=== PATIENT | female | born 2000 | race Two or more races ===

== ENCOUNTER 2020-02-19 13:38 | Outpatient (CLI) | payer BC, SELFPAY ==
--- NOTE | 2020-02-19 | ECG_ITS ---
Measurements Intervals [place] Rate: 78 P: 31 FL: 139 QRS: 18 QRSD: 72 T: 9 QT: 391 QTc: 446 Interpretive Statements SINUS RHYTHM NORMAL ECG Electronically Signed On 02-19-2020 14:57:48 PARACHUTIST/COMBATANT DIVER QUALIFIED by Suleiman Nielson D.O.
--- NOTE | ~2020-02-19 | XR_ITS ---
XR chest 2V DATE: 02/19/2020 14:18 INDICATION: Dyspnea. Dizziness. Fatigue. TECHNIQUE: PA and lateral views COMPARISON: None FINDINGS: Normal heart size. No hilar or mediastinal enlargement. No pulmonary infiltrate or consolid ation, pleural effusion or pulmonary vascular congestion or pneumothorax. Mild dextroscoliosis of the thoracic spine. IMPRESSION: No active cardiopulmonary disease Reviewed, dictated and finalized at location B. E MAKER
[2020-02-19 14:08] LABS: Mean Corpuscular HGB Conc 24.5 g/dl (32-36); Mean Corpuscular Hemoglobin 14.7 pg (26-34); Mean Corpuscular Volume 59.9 fl (80-100); Mean Platelet Volume 10.2 fl (7.4-10.4); Platelet Count Result 384 k/mm3 (150-375); Red Blood Count 3.07 M/mm3 (4.2-5.4); Red Cell Distribution Width 21.8 % (11.5-14.5); White Blood Count 3.9 K/mm3 (4.5-10.0)
[2020-02-19 14:21] LABS: Alanine Aminotransferase 17 U/L (4-35); Albumin Level 4.6 g/dL (3.5-5.1); Alkaline Phosphatase 45 U/L (38-126); Anion Gap 7 mmol/L (8-16); Aspartate Amino Transferase 30 U/L (14-36); Bilirubin,Total 0.7 mg/dL (0.2-1.3); Blood Urea Nitrogen 11 mg/dL (7-17); Calcium 9.1 mg/dL (8.4-10.2); Carbon Dioxide 27 mmol/L (22-30); Chloride 105 mmol/L (98-107); D Dimer 0.31 ug/mL (<0.48); Estimated Glomerular Filt Rate > 60; Glucose 107 mg/dL (65-105); Potassium 3.9 mmol/L (3.4-5.0); Sodium 139 mmol/L (137-145)
[2020-02-19 14:26] LABS: Hematocrit 18.4 % (37.0-47.0); Hemoglobin 4.5 g/dL (12.0-15.0)
[2020-02-19 14:29] LABS: NT Pro B Type Natriuretic Pept 47 PG/ML (5-100)
[2020-02-19 14:51] LABS: Thyroid Stimulating Hormone 0.853 uIU/mL (0.465-4.680)
[2020-02-19 15:05] LABS: Add Urine Microscopic? NO; Appearance Urine Clear (Clear); Bilirubin Urine Negative (Negative); Blood Urine Negative (Negative); Color Urine Yellow (Yellow); Glucose Urine UA Negative (Negative); Ketones Urine Negative (Negative); Leukocyte Esterase Ur Negative LEU/UL (NEGATIVE); Nitrate Urine Negative (Negative); Protein Urine Negative (Negative); Specific Grav Ur 1.017 (1.001-1.035); Urobilinogen Urine Negative mg/dL (<2.0)
[2020-02-19 15:29] LABS: Free T4 Free Thyroxine 1.05 ng/mL (0.78-2.19)
[2020-02-24 13:43] LABS: Triiodothyronine T3 Free 3.1 pg/mL (2.3-4.2)
== END 2020-02-19 13:39 | disposition home or self-care (01) ==
LOC: ANHLAB 13:42
PROVIDERS: PCP Internal Medicine; Visit Provider Internal Medicine
DX: R06.09 Other forms of dyspnea (principal); R53.83 Other fatigue; R42 Dizziness and giddiness
CPT/HCPCS: 36415; 71046; 80053; 81003; 83880; 84439; 84443; 84481; 85027; 85380; 93005

== ENCOUNTER 2020-03-03 10:37 | Outpatient (CLI) | payer BC, SELFPAY ==
[2020-03-03] MEDS: IRON SUCROSE COMPLEX 500 MG in SODIUM CHLORIDE 0.9% IV 250 ML 68.75 MG IVPB (11:06)
[2020-03-03 13:59] VITALS: BP 107/63; PULSE 80; RESP 14; TEMP 36.6; O2SAT 98
[2020-03-03 14:45] VITALS: BP 97/60; PULSE 72; RESP 14; O2SAT 99
--- NOTE | 2020-03-03 15:03 | PC.NURSE ---
Tolerated Venofer IV infusion well. Discuss medication with patient. Safe exit of hospital.
== END 2020-03-03 10:38 | disposition home or self-care (01) ==
PROVIDERS: PCP Internal Medicine; Visit Provider Internal Medicine
DX: D50.9 Iron deficiency anemia, unspecified (principal)
CPT/HCPCS: 96365; 96366; J1756; J7050

== ENCOUNTER 2020-04-08 12:47 | Outpatient (CLI) | payer MEDICAID, SELFPAY ==
--- NOTE | ~2020-04-08 | US_ITS ---
EXAMINATION: US pelvic complete w TV EXAM DATE: 04/08/2020 13:23 INDICATION: N92.0 - Excessive and frequent menstruation with regular cycle. TECHNIQUE: Pelvic transabdominal and transvaginal sonogram was performed. There are multiple graysca le and Doppler images available for interpretation. Comparison is made to prior examination from 2015. FINDINGS: Uterus measures 8.1 x 4.1 x 4.9 cm, is retroverted and morphologically normal. Endometria l stripe measures 11 mm, within normal limits. There is no free pelvic fluid. Right adnexa: The ovary measures 4.5 x 2.1 x 3.1 cm and is morphologically normal. Ovarian vascular f low confirmed. Left adnexa: The ovary measures 5.8 x 3.0 x 3.1 cm and is morphologically normal. Ovarian vascular fl ow confirmed. IMPRESSION: 1. Unremarkable pelvic ultrasound exam. Reviewed, dictated and finalized at location B. S CUTTING MACHINE FEEDER
== END 2020-04-08 12:48 | disposition home or self-care (01) ==
LOC: ANHIMG 12:52
PROVIDERS: PCP Internal Medicine; Visit Provider Student in an Organized Health Care Education/Training Program
DX: N92.0 Excessive and frequent menstruation with regular cycle (principal)
CPT/HCPCS: 76830; 76856

== ENCOUNTER 2020-04-26 13:03 | Outpatient (CLI) | payer BC, SELFPAY ==
[2020-04-26 13:44] LABS: Hematocrit 41.2 % (37.0-47.0); Immature Platelet Fraction Pct 4.2 % (0.9-11.2); Immature Reticulocyte Fraction 2.8 % (3.0-15.9); Mean Corpuscular HGB Conc 31.6 g/dl (32-36); Mean Corpuscular Volume 91.8 fl (80-100); Mean Platelet Volume 10.4 fl (7.4-10.4); Platelet Count Result 230 k/mm3 (150-375); Red Blood Count 4.49 M/mm3 (4.2-5.4); Red Cell Distribution Width 19.5 % (11.5-14.5); Reticulocyte Hemoglobin Conten 36.6 pg (28.2-35.7); Reticulocyte Percent 0.97 % (0.7-4.3); Reticulocytes Absolute 0.04 B/L (32.2-175.7); White Blood Count 4.4 K/mm3 (4.5-10.0)
[2020-04-26 13:53] LABS: INR 0.9
[2020-04-26 13:54] LABS: Partial Thromboplastin Time 25.3 SECONDS (22.3-36.8)
[2020-04-26 14:26] LABS: Iron 50 ug/dL (37-170)
[2020-04-26 14:39] LABS: Percent Iron Saturation 13 % (20-50)
[2020-04-28 21:00] LABS: Factor VIII Activity 161 % normal (50-180)
[2020-04-29 05:54] LABS: Prolactin 9.6 ng/mL (***)
[2020-04-29 13:33] LABS: von Willebrand Factor Ag 150 % (50-217)
== END 2020-04-26 13:04 | disposition home or self-care (01) ==
LOC: ANHLAB 13:04
PROVIDERS: PCP Internal Medicine; Visit Provider Student in an Organized Health Care Education/Training Program
DX: D64.9 Anemia, unspecified (principal)
CPT/HCPCS: 36415; 82728; 83520; 83540; 83550; 84146; 85027; 85046; 85055; 85240; 85246; 85610; 85730

== ENCOUNTER 2020-05-02 11:01 | Outpatient (CLI) | payer BC, SELFPAY ==
[2020-05-02 11:31] LABS: SARS-CoV-2 Ag Negative (Negative)
[2020-05-02 12:15] LABS: SARS-CoV-2 RNA PCR Negative
== END 2020-05-02 11:02 | disposition home or self-care (01) ==
LOC: CHSLAB 11:02
PROVIDERS: PCP Internal Medicine; Visit Provider Internal Medicine
DX: J06.9 Acute upper respiratory infection, unspecified (principal); Z20.822 Contact with and (suspected) exposure to COVID-19
CPT/HCPCS: 87426; C9803; U0003; U0005

== ENCOUNTER 2021-06-27 03:35 | Emergency (ER) | payer OTHER, SELFPAY ==
--- NOTE | ~2021-06-27 | CT_ITS ---
EXAMINATION: CT abdomen pelvis w con INDICATION: Left lower abdominal pain TECHNIQUE: Computed tomographic images of the abdomen and pelvis were obtained after the administrati on of 100 cc of Omnipaque 350 intravenous contrast. The dose-length product (DLP) was 874.48 mGy-cm. Automated exposure control and iterative reconstruction technique were employed. COMPARISON: None available FINDINGS: The lung bases are clear. The heart size is normal. The liver, spleen, pancreas, gallbladde r, and adrenal glands are normal. The kidneys are unremarkable. No pathologically enlarged abdominal or pelvic lymph nodes are identified. There is no free intraperitoneal gas or evidence of bowel obstr uction. The appendix is normal. There appears to be an intramural fibroid of the posterior uterine bernadine dy. There is a large volume of stool in the proximal colon. IMPRESSION: 1. Large volume of stool in the proximal colon. Reviewed, dictated and finalized at location A.
[2021-06-27 03:36] VITALS: BP 150/97; PULSE 86; RESP 18; TEMP 36.1; O2SAT 100
[2021-06-27 04:13] LABS: Appearance Urine Clear (Clear); Bilirubin Urine Negative (Negative); Blood Urine Negative (Negative); Color Urine Yellow (Yellow); Glucose Urine UA Negative (Negative); Ketones Urine Negative (Negative); Leukocyte Esterase Ur Negative LEU/UL (Negative); Nitrate Urine Negative (Negative); Protein Urine Negative (Negative); Specific Grav Ur 1.025 (1.001-1.035); Urobilinogen Urine 0.2 mg/dL (<2.0); pH Urine 6.5 (5.0-9.0)
[2021-06-27 04:16] LABS: Add Urine Microscopic? NO
--- NOTE | 2021-06-27 04:16 | PC.NURSE ---
This RN attempted IV access, unsuccessful. 2nd RN to try
[2021-06-27 04:36] LABS: Basophils Percent Auto 0.5 % (0.2-1.2); Eosinophils Absolute Auto 0.2 K/mm3 (0-0.3); Eosinophils Percent Auto 2.5 % (0-4.4); Hematocrit 41.2 % (37.0-47.0); Hemoglobin 12.9 g/dL (12.0-15.0); Immature Granulocyte Absolute 0.01 K/mm3 (0.00-0.031); Immature Granulocyte Percent A 0.1 % (0-0.5); Lymphocytes Absolute Auto 1.38 K/mm3 (0.9-3.2); Lymphocytes Percent Auto 18.8 % (18.3-44.2); Mean Corpuscular HGB Conc 31.3 g/dl (32-36); Mean Corpuscular Hemoglobin 28.4 pg (26-34); Mean Corpuscular Volume 90.7 fl (80-100); Mean Platelet Volume 10.4 fl (7.4-10.4); Monocytes Absolute Auto 0.7 K/mm3 (0.1-0.6); Monocytes Percent Auto 9.9 % (2.6-8.5); Neutrophils Percent Auto 68.2 % (45.5-73.1); Platelet Count Result 248 k/mm3 (150-375); Red Blood Count 4.54 M/mm3 (4.2-5.4); Red Cell Distribution Width 14.1 % (11.5-14.5); White Blood Count 7.3 K/mm3 (4.5-10.0)
[2021-06-27 04:49] LABS: Alanine Aminotransferase 45 U/L (6-35); Alkaline Phosphatase 58 U/L (38-126); Anion Gap 3 mmol/L (8-16); Aspartate Amino Transferase 40 U/L (14-36); Bilirubin,Total 0.4 mg/dL (0.2-1.3); Blood Urea Nitrogen 12 mg/dL (7-17); Carbon Dioxide 27 mmol/L (22-30); Chloride 107 mmol/L (98-107); Estimated CRCL calculation 106 ml/min; Estimated Glomerular Filt Rate > 60; Glucose 92 mg/dL (65-110); Lipase 31 U/L (23-300); Potassium 4.6 mmol/L (3.4-5.0); Sodium 137 mmol/L (137-145)
--- NOTE | 2021-06-27 05:07 | ED.ABDPAIN ---
HPI - Abdominal Pain General Chief Complaint: Abdominal Pain Stated Complaint: Left abd cramping with back and leg radiation Time Seen by Provider: 06/27/21 04:18 Source: patient and RN notes reviewed Mode of arrival: ambulatory Limitations: no limitations History of Present Illness HPI narrative: This is a 21 year old female who presents for evaluation left lower abdominal pain. She states this pain started 2 days ago. She describes pain has pressure to left lower abdomen that radiates to her left lower back and buttock. She reports having this pain in the passed but it has never been this bad. She has been unable to sleep due to her pain. She took tylenol and ibuprofen at 7 pm last night without improvement. This pain usually seems to be affiliated with her menstrual cycle. She denies nausea, vomiting, fever, chills or urinary complaints. she also denies abnormal vaginal discharge. She rates her pain as 8/10. Related Data Home Medications Medication Instructions Recorded Confirmed famotidine 40 mg PO DAILY 03/03/20 12/14/20 acetaminophen 500 mg tablet 500 mg PO Q6H PRN 03/23/20 12/14/20 escitalopram oxalate 10 mg tablet 10 mg PO DAILY 12/14/20 12/14/20 escitalopram oxalate 5 mg tablet 5 mg PO DAILY 12/14/20 12/14/20 Allergies Allergy/AdvReac Type Severity Reaction Status Date / Time amoxicillin Allergy Rash Verified 06/27/21 04:23 Review of Systems Review of Systems: All systems reviewed & are unremarkable except as noted in HPI and below Constitutional: Constitutional: Denies chills and Denies fever(s) Gastrointestinal: Gastrointestinal: Reports abdominal pain, Denies diarrhea, Denies nausea and Denies vomiting Genitourinary: Genitourinary: Denies hematuria, Denies dysuria, Reports pelvic pain and Reports flank pain PMFSH Past Medical History Medical History Anemia Anxiety and depression History of irregular menstrual bleeding Surgical History Surgical History H/O wrist surgery 2010 [place] teeth removed 2011 Family History Family History Father Hypertension Social History Social History (Reviewed 09/14/20 @ 12:59 by LISHA Gonzales Smoking status: Never smoker Alcohol intake: current Substance use: never Exam Const: General: no acute distress and alert Orientation/consciousness: patient oriented x3 Eyes: EOM: EOMs intact bilaterally Chest: Chest palpation & inspection: normal inspection of the chest Resp: Effort & Inspection: normal respiratory effort and no retractions Auscultation: clear to auscultation bilaterally Cardio: Rate: regular rate Rhythm: regular rhythm Heart sounds: no murmurs GI: GI Palp: Yes Soft to palpation, Yes Tenderness to palpation present (GI) (LLQ), No Guarding due to palpation present (GI) and No Rigid due to palpation Auscultation: normal bowel sounds : General: Yes no CVA tenderness Back/Spine/Pelvis: Back: no CVA tenderness Skin: General skin exam: normal color Neuro: General: patient oriented x3, moves all extremities and CN's II-XI intact bilaterally Psych: Mental Status: mental status grossly normal Affect: normal affect Course Reevaluation(s) Reevaluation #1: Patient states she feels better. I discussed CT scan. She will follow up with analytical scientist. Date: 06/27/21 Time: 07:10 Vital Signs Vital signs: Vital Signs Temperature 96.9 F L 06/27/21 03:36 Pulse Rate 86 06/27/21 03:36 Respiratory Rate 18 06/27/21 03:36 Blood Pressure 150/97 H 06/27/21 03:36 Pulse Oximetry 100 06/27/21 03:36 Temperature 97.8 F 06/27/21 07:25 Pulse Rate 77 06/27/21 07:25 Respiratory Rate 16 06/27/21 07:25 Blood Pressure 122/80 06/27/21 07:25 Pulse Oximetry 100 06/27/21 07:25 MDM - Abdominal Pain Lab Data Attestation: I reviewed th
[2021-06-27] MEDS: KETOROLAC 30 MG/ML VIAL (*BKC) IV PUSH (05:10)
[2021-06-27 05:11] VITALS: PULSE 76; RESP 13; O2SAT 100
[2021-06-27 06:19] VITALS: BP 112/93; PULSE 71; RESP 20; O2SAT 100
[2021-06-27 07:25] VITALS: BP 122/80; PULSE 77; RESP 16; TEMP 36.6; O2SAT 100
== END 2021-06-27 07:27 | disposition home or self-care (01) ==
PROVIDERS: Emergency Provider General Practice; PCP Internal Medicine
DX: R10.32 Left lower quadrant pain (principal)
CPT/HCPCS: 36415; 74177; 80053; 81003; 81025; 83690; 85025; 96374; 99284; J1885; Q9967

== ENCOUNTER 2021-07-13 12:48 | Outpatient (CLI) | payer BC, SELFPAY ==
--- NOTE | ~2021-07-13 | US_ITS ---
EXAMINATION: US pelvic complete w TV DATE: 07/13/2021 13:34 INDICATION: Left lower quadrant pain Comparison:Ultrasound dated 04/08/2020 TECHNIQUE: Multiple transabdominal and endovaginal sonographic images of the pelvis performed. FINDINGS: The uterus measures 6.5 x 4 x 4.5 cm. There is a uterine fibroid located posteriorly in the myometrium measuring 1.6 x 1.6 x 1.5 cm. The endometrial complex measures 3.6 mm. The right ovary measures 4.4 x 1.9 x 2.6 cm and the left ovary measures 4.1 x 2.3 x 2.8 cm. There ar e small follicles in each ovary. Normal doppler signal in both ovaries. There is no free fluid in the pelvis. There are no abnormal masses seen on either side. IMPRESSION: 1. Posterior uterine fibroid measuring 1.6 cm maximum dimension. Reviewed, dictated and finalized at location A.
== END 2021-07-13 12:49 | disposition home or self-care (01) ==
PROVIDERS: PCP Internal Medicine; Visit Provider Student in an Organized Health Care Education/Training Program
DX: R10.2 Pelvic and perineal pain (principal); D25.9 Leiomyoma of uterus, unspecified
CPT/HCPCS: 76830; 76856

== ENCOUNTER 2023-03-09 10:20 | Outpatient (CLI) | payer OTHER, SELFPAY ==
[2023-03-09 11:21] LABS: Ferritin 8 ng/mL (8-252); Iron 10 ug/dL (50-170); Percent Iron Saturation 3 % (12-57)
== END 2023-03-09 10:21 | disposition home or self-care (01) ==
PROVIDERS: PCP Internal Medicine; Visit Provider Internal Medicine
DX: D50.0 Iron deficiency anemia secondary to blood loss (chronic) (principal)
CPT/HCPCS: 36415; 82728; 83540; 83550

== ENCOUNTER 2023-03-13 15:24 | Outpatient (CLI) | payer OTHER, SELFPAY ==
--- NOTE | ~2023-03-13 | US_ITS ---
EXAMINATION: US pelvic complete w TV DATE: 03/13/2023 16:33 INDICATION: Menometrorrhagia. TECHNIQUE: Multiple transabdominal and transvaginal sonographic images of the pelvis were obtained. COMPARISON: Pelvis ultrasound 07/13/2021, CT abdomen and pelvis 06/27/2021 FINDINGS: TRANSABDOMINAL ULTRASOUND: The uterus measures 7.0 x 3.9 x 4.7 cm. There is physiologic free fluid in the pelvis. TRANSVAGINAL ULTRASOUND: The endometrial complex measures 12 mm in thickness. There is a 3.1 cm intramural fibroid. The right ovary measures 5.3 x 2.8 x 4.7 cm. The left ovary measures 5.4 x 2.9 x 3.3 cm. There is a greater natasha n expected number of visible follicles in each ovary. There is normal vascular flow in the ovaries. IMPRESSION: 1. Polycystic ovarian morphology. Correlate clinically for polycystic ovary syndrome. 2. Uterine fibroid. Reviewed, dictated and finalized at location A. E BUSINESS ANALYST IMPRESSION: 1. Polycystic ovarian morphology. Correlate clinically for polycystic ovary syn drome. 2. Uterine fibroid.
== END 2023-03-13 15:25 | disposition home or self-care (01) ==
PROVIDERS: PCP Internal Medicine; Visit Provider Obstetrics & Gynecology
DX: N92.1 Excessive and frequent menstruation with irregular cycle (principal); D25.9 Leiomyoma of uterus, unspecified
CPT/HCPCS: 76830; 76856

== ENCOUNTER 2023-12-13 19:27 | Emergency (ER) | payer OTHER, SELFPAY ==
--- NOTE | ~2023-12-13 | US_ITS ---
EXAMINATION: US pelvic complete w TV DATE: 12/14/2023 00:40 INDICATION: Left lower quadrant tenderness. Ovarian cyst. TECHNIQUE: Multiple transabdominal and endovaginal sonographic images of the pelvis were obtained. COMPARISON: None. FINDINGS: The uterus measures 7.4 x 4.1 x 5.0 cm. The endometrial complex measures 5-6 mm in thickness. 3.1 cm hypoechoic likely fibroid at the posterior uterine fundus. There are a few subcentimeter anechoic na bothian cysts at the cervix. The right ovary measures 4.2 x 4.4 x 2.7 cm. The left ovary measures 5.0 x 4.5 x 3.1 cm. Normal vascu lar flow identified at both ovaries on color Doppler. There are multiple bilateral ovarian cysts paulino uring up to 1 cm at the periphery of both ovaries suggestive of polycystic ovarian disease. There is very small amount of anechoic likely physiologic free fluid along side the uterus and both ovaries. free fluid in the pelvis. IMPRESSION: 1. 3.1 cm uterine fibroid. 2. Multiple ovarian cysts measuring up to 1 cm on the periphery of both ovaries suggesting possible p olycystic ovarian disease. Reviewed, dictated and finalized at location A. IMPRESSION: 1. 3.1 cm uterine fibroid. 2. Multiple ovarian cysts measuring up to 1 cm on the periphery of both ovaries suggesting possible polycystic ovarian disease.
[2023-12-13 19:34] VITALS: BP 133/80; PULSE 84; RESP 18; TEMP 36.7; O2SAT 100
--- NOTE | 2023-12-13 22:04 | ED.ABDPAIN ---
HPI - Abdominal Pain General Chief Complaint: Abdominal Pain Stated Complaint: abd pain Time Seen by Provider: 12/13/23 22:04 Source: patient Mode of arrival: ambulatory Limitations: no limitations History of Present Illness HPI narrative: This is a 23-year-old female who presents to the ED for chief complaint of abdominal pain in the left lower quadrant over the past 4 days intermittently. Reports the pain has primarily been on the left side and radiates into the left lower back at times, sometimes down the left leg. She was sent over by urgent care today for further evaluation. Patient describes the pain as cramping like a period but a million times worse. Patient states that she has chronic issues with ovarian cysts and abnormal menstrual periods. States that she is currently getting off her most recent menstrual period. Denies fevers, chills, nausea, vomiting, diarrhea, GI bleeding symptoms, dysuria, hematuria, vaginal symptoms, chest pain, shortness of breath. Related Data Home Medications Medication Instructions Recorded Confirmed famotidine 40 mg tablet 40 mg PO DAILY 03/03/20 03/26/23 acetaminophen 500 mg tablet 500 mg PO Q6H PRN Pain 03/23/20 03/26/23 (Tylenol Extra Strength) bupropion HCl 150 mg tablet,12 hr 150 mg PO BID 06/29/21 03/26/23 sustained-release Allergies Allergy/AdvReac Type Severity Reaction Status Date / Time amoxicillin Allergy Rash Verified 12/13/23 22:55 Review of Systems Review of Systems: All systems as dictated in HPI PMFSH Past Medical History Medical History Anemia Anxiety and depression History of irregular menstrual bleeding Surgical History Surgical History H/O wrist surgery 2011 [place] teeth removed 2011 Family History Family History Father Hypertension Social History Social History Smoking status: Never smoker Alcohol intake: current Substance use: never Exam Narrative: GENERAL: Well-appearing, well-nourished, and in no acute distress. HEAD: Normocephalic, atraumatic. EYES: PERRLA and EOMI. ENT: Nares clear, no rhinorrhea or epistaxis. Mucous membranes moist. Oropharynx without tonsillar hypertrophy exudate or other lesions. NECK: Supple. No adenopathy or masses. CHEST: No respiratory distress. Clear to auscultation. No wheezes rales or rhonchi HEART: Regular rate and rhythm. No murmur heard. Normal peripheral pulses. ABDOMEN: Mild tenderness to suprapubic abdomen and left lower quadrant. Soft, otherwise nontender, nondistended, normal active bowel sounds. Negative flank tenderness bilaterally MSK: Normal range of motion. No edema. SKIN: Warm, dry, no rash. NEURO: Alert and oriented x4. No focal deficits. PSYCH: Normal mood and affect. Course Vital Signs Vital signs: Vital Signs Temperature 98.1 F 12/13/23 19:34 Pulse Rate 84 12/13/23 19:34 Respiratory Rate 18 12/13/23 19:34 Blood Pressure 133/80 12/13/23 19:34 Pulse Oximetry 100 12/13/23 19:34 Oxygen Delivery Room Air 12/13/23 19:34 Temperature 97.7 F 12/14/23 02:37 Pulse Rate 75 12/14/23 02:37 Respiratory Rate 16 12/14/23 02:37 Blood Pressure 133/88 12/14/23 02:37 Pulse Oximetry 100 12/14/23 02:37 Oxygen Delivery Room Air 12/13/23 19:34 MDM - Abdominal Pain MDM Narrative Medical decision making narrative: This patient has elected to leave against medical advice. In my opinion, the patient has capacity to leave AMA. The patient is clinically sober, free from distracting injury, appears to have intact insight and judgment and reason, and in my opinion has capacity to make decisions. I explained to the patient that her symptoms may represent ovarian torsion and that the patient has a critically low hemoglobin and the patient verbalized understanding of my concerns. I had a discussion with the patient about their workup and results, and that they may still have ovarian torsion despite reassuring biomedical engineering technologist results. I informed the patient that the next step in diagnosis and treatment would be official radiology read for the ultrasound as well as urgent blood transfusion for the critically low hemoglobin and they verbalized understanding of this as well. I explained the risks of leaving without further workup or treatment, which included reasonably foreseeable complications such as , serious injury, permanent disability. I also offered alternatives to departing AMA such as assigning the patient a different provider or an alternate workup pathway. The patient is refusing any further care, specifically blood transfusion and waiting for radiology read and is leaving against medical advice. I am unable to convince the patient to stay. I have asked them to return as soon as possible to complete their evaluation, and also explained that they were welcome to return to the ER for further evaluation whenever they choose. I have asked the patient to follow up with their primary doctor as soon as possible. I have answered all their questions. Patient signed AMA paperwork. Lab Data 12/13/23 23:03 12/13/23 23:03 Labs: Lab Results 12/13/23 12/13/23 Range/Units 22:56 23:03 WBC 6.1 (4.5-10.0) K/mm3 RBC 2.82 L (4.2-5.4) M/mm3 Hgb 5.1 L* D (12.0-15.0) g/dL Hct 19.0 L* (37.0-47.0) % MCV 67.4 L (80-100) fl MCH 18.1 L (26-34) pg MCHC 26.8 L (32-36) g/dl RDW 21.2 H (11.5-14.5) % Plt Count 292 (150-375) k/mm3 MPV 10.4 (7.4-10.4) fl Immature Gran % (Auto) 0.3 (0-0.5) % Neut % (Auto) 69.4 (45.5-73.1) % Lymph % (Auto) 20.5 (18.3-44.2) % [place] % (Auto) 8.1 (2.6-8.5) % Eos % (Auto) 1.2 (0-4.4) % Baso % (Auto) 0.5 (0.2-1.2) % Lymph # (Auto) 1.24 (0.9-3.2) K/mm3 [place] # (Auto) 0.5 (0.1-0.6) K/mm3 Eos # (Auto) 0.1 (0-0.3) K/mm3 Baso # (Auto) 0.0 (0.0-0.1) K/mm3 Abs Immat Gran (auto) 0.02 (0.00-0.031) K/mm3 Absolute Neuts (auto) 4.2 (1.3-6.7) K/mm3 Absolute Nucleated RBC 0.000 (0.0-0.012) K/mm3 Nucleated RBC % 0.0 (0.0-0.2) % Platelet Estimate Adequate (Adequate) Hypochromasia 2+ Anisocytosis 2+ Microcytosis 1+ (NORMAL) Ovalocytes 1+ Schistocytes None seen Sodium 138 (137-145) mmol/L Potassium 4.2 (3.4-5.0) mmol/L Chloride 105 (98-107) mmol/L Carbon Dioxide 23 (22-30) mmol/L Anion Gap 10 (4-12) mmol/L BUN 9 (7-17) mg/dL Creatinine 0.70 (0.7-1.0) mg/dL Estim Creat Clear Calc 137 ml/min Estimated GFR > 60 (59 - ) Glucose 84 (65-110) mg/dL Calcium 9.0 (8.4-10.2) mg/dL Total Bilirubin 0.4 (0.2-1.3) mg/dL AST 28 (14-36) U/L ALT 18 (6-35) U/L Alkaline Phosphatase 71 (38-126) U/L Total Protein 7.0 (6.3-8.2) g/dL Albumin 4.0 (3.5-5.1) g/dL Lipase 33 (23-300) U/L Urine Color Yellow (Yellow) Urine Appearance Clear (Clear) Urine pH 5.5 (5.0-9.0) Ur Specific [place] 1.021 (1.001-1.035) Urine Protein Negative (Negative) mg/dL Urine Glucose (UA) Negative (Negative) mg/dL Urine Ketones Negative (Negative) mg/dL Ur Blood (Man) Negative (Negative) Urine Nitrate Negative (Negative) Urine Bilirubin Negative (Negative) Urine Urobilinogen 0.2 (<2.0) mg/dL Leukocyte Esterase Rfl Negative (Negative) HANS/UL POC Urine HCG, Qual Negative (Negative) Discharge Plan Discharge Clinical Impression: Low hemoglobin, Abdominal pain Patient Disposition: Left Against Medical Advice Condition: Stable Prescriptions: No Action famotidine 40 mg Tablet 40 mg PO DAILY acetaminophen [Tylenol Extra Strength] 500 mg tablet 500 mg PO Q6H PRN (Reason: Pain) bupropion HCl 150 mg tablet sustained-release 12 hr 150 mg PO BID ibuprofen 800 mg tablet 800 mg PO TID PRN (Reason: pain) Qty: 10 0RF Nextstellis 3 mg- 14.2 mg (28) tablet See Rx Instructions PO .COMPLEX Qty: 84 0RF Rx Instructions: take 1-PINK tablet once daily for 24 days/days 1-24 of cycle; take 1-WHITE tablet once daily for 4 days/days 25-28 of cycle. PO Follow-up/Referrals: Lalit Kong MD [Primary Care Provider] - Time of Disposition: 03:18
[2023-12-13 22:54] VITALS: BP 139/76; PULSE 76; RESP 18; O2SAT 100
--- NOTE | 2023-12-13 23:00 | PC.NURSE ---
Pt refusing IV. RM Chan notified and stated to draw labs and pt can be dc if US comes back normal.
[2023-12-13 23:04] LABS: Add Urine Microscopic? NO; Appearance Urine Clear (Clear); Bilirubin Urine Negative (Negative); Blood Urine Negative (Negative); Color Urine Yellow (Yellow); Glucose Urine UA Negative (Negative); Ketones Urine Negative (Negative); Leukocyte Esterase Ur Negative LEU/UL (Negative); Nitrate Urine Negative (Negative); Protein Urine Negative (Negative); Specific Grav Ur 1.021 (1.001-1.035); Urobilinogen Urine 0.2 mg/dL (<2.0); pH Urine 5.5 (5.0-9.0)
[2023-12-13 23:06] LABS: BEDSIDEPREGUCG Negative (Negative)
[2023-12-13 23:10] LABS: Basophils Percent Auto 0.5 % (0.2-1.2); Eosinophils Absolute Auto 0.1 K/mm3 (0-0.3); Eosinophils Percent Auto 1.2 % (0-4.4); Immature Granulocyte Absolute 0.02 K/mm3 (0.00-0.031); Immature Granulocyte Percent A 0.3 % (0-0.5); Lymphocytes Absolute Auto 1.24 K/mm3 (0.9-3.2); Lymphocytes Percent Auto 20.5 % (18.3-44.2); Mean Corpuscular HGB Conc 26.8 g/dl (32-36); Mean Corpuscular Hemoglobin 18.1 pg (26-34); Mean Corpuscular Volume 67.4 fl (80-100); Mean Platelet Volume 10.4 fl (7.4-10.4); Monocytes Absolute Auto 0.5 K/mm3 (0.1-0.6); Monocytes Percent Auto 8.1 % (2.6-8.5); Neutrophils Absolute Auto 4.2 K/mm3 (1.3-6.7); Neutrophils Percent Auto 69.4 % (45.5-73.1); Platelet Count Result 292 k/mm3 (150-375); Red Blood Count 2.82 M/mm3 (4.2-5.4); Red Cell Distribution Width 21.2 % (11.5-14.5); White Blood Count 6.1 K/mm3 (4.5-10.0)
[2023-12-13 23:12] LABS: Hemoglobin 5.1 g/dL (12.0-15.0)
[2023-12-13 23:28] LABS: Anisocytosis 2+; Hypochromasia 2+; Platelet Estimate Adequate (Adequate)
[2023-12-13 23:29] LABS: Alanine Aminotransferase 18 U/L (6-35); Alkaline Phosphatase 71 U/L (38-126); Anion Gap 10 mmol/L (4-12); Aspartate Amino Transferase 28 U/L (14-36); Bilirubin,Total 0.4 mg/dL (0.2-1.3); Blood Urea Nitrogen 9 mg/dL (7-17); Carbon Dioxide 23 mmol/L (22-30); Chloride 105 mmol/L (98-107); Estimated CRCL calculation 137 ml/min; Estimated Glomerular Filt Rate > 60; Glucose 84 mg/dL (65-110); Lipase 33 U/L (23-300); Microcytosis 1+ (NORMAL); Ovalocytes 1+; Potassium 4.2 mmol/L (3.4-5.0); Schistocytes None Seen; Sodium 138 mmol/L (137-145)
[2023-12-14 02:37] VITALS: BP 133/88; PULSE 75; RESP 16; TEMP 36.5; O2SAT 100
== END 2023-12-14 03:44 | disposition left against medical advice (07) ==
PROVIDERS: Emergency Provider Physician Assistant; PCP Internal Medicine
DX: D64.9 Anemia, unspecified (principal); R10.32 Left lower quadrant pain; F41.8 Other specified anxiety disorders
CPT/HCPCS: 36415; 76830; 76856; 80053; 81003; 81025; 83690; 85025; 99284

== ENCOUNTER 2023-12-23 09:20 | Outpatient (CLI) | payer OTHER, SELFPAY ==
--- NOTE | 2023-12-23 09:37 | PC.NURSE ---
Here for OP iron infusion
[2023-12-23 09:41] VITALS: BP 124/78; PULSE 89; RESP 18; TEMP 36.6
[2023-12-23 09:42] VITALS: BMI 32.2
[2023-12-23] MEDS: IRON SUCROSE COMPLEX 400 MG, IRON SUCROSE COMPLEX 100 MG in SODIUM CHLORIDE 0.9% IV 250 ML 62.5 MG IVPB (09:52)
--- NOTE | 2023-12-23 10:06 | PC.NURSE ---
arm feels heavy, site checked, clear, no edema, no redness, iron infusing at 62.5 ml an hour as ordered
--- NOTE | 2023-12-23 11:16 | PC.NURSE ---
site clear, pain with movement, no rednes sor edema
[2023-12-23 13:54] VITALS: BP 117/66; PULSE 82; RESP 18; TEMP 37.1; O2SAT 100
--- NOTE | 2023-12-23 14:45 | PC.NURSE ---
discharge to home, education given on infusion of iron, saline lock dc intact, no questions
== END 2023-12-23 09:21 | disposition home or self-care (01) ==
PROVIDERS: PCP Internal Medicine; Visit Provider Internal Medicine
DX: D50.9 Iron deficiency anemia, unspecified (principal)
CPT/HCPCS: 96365; 96366; J1756; J7050

== ENCOUNTER 2024-01-06 15:18 | Outpatient (CLI) | payer OTHER, SELFPAY ==
[2024-01-06 15:43] LABS: Hematocrit 27.9 % (37.0-47.0); Hemoglobin 7.5 g/dL (12.0-15.0); Mean Corpuscular HGB Conc 26.9 g/dl (32-36); Mean Corpuscular Hemoglobin 20.8 pg (26-34); Mean Corpuscular Volume 77.3 fl (80-100); Mean Platelet Volume 10.4 fl (7.4-10.4); Platelet Count Result 362 k/mm3 (150-375); Red Blood Count 3.61 M/mm3 (4.2-5.4); Red Cell Distribution Width 33.1 % (11.5-14.5); White Blood Count 5.4 K/mm3 (4.5-10.0)
[2024-01-06 16:37] LABS: Iron 21 ug/dL (37-170)
[2024-01-06 16:47] LABS: Percent Iron Saturation 6 % (20-50)
== END 2024-01-06 15:19 | disposition home or self-care (01) ==
PROVIDERS: PCP Internal Medicine; Visit Provider Internal Medicine
DX: D64.9 Anemia, unspecified (principal)
CPT/HCPCS: 36415; 82728; 83540; 83550; 85027

== ENCOUNTER 2024-07-30 01:13 | Day surgery (SDC) | payer BC, SELFPAY ==
--- NOTE | 2024-07-22 17:51 | PC.NURSE ---
Report to the Outpatient Waiting Room, entrance under the green pavilion located off [facility], at time 0900 on date 07/30/24. Planned Procedure Time: 1100.? Time changes happen often and if your time is changed the preop area will call you the afternoon before. - You and your visitor will be asked to self-screen and do not enter if you have any COVID symptoms. Please call surgeon if you need to reschedule. - A mask is optional within the hospital at this time. Patients may have clear liquids (water, carbonated beverages, clear teas, apple juice) until 3 hours prior to surgery with a maximum of 20 ounces. 0800 - No food from midnight until time of surgery and no smoking, or chewing tobacco (or any form of nicotine). No chewing gum, candy or mints. - Infants may have breast milk until 4 hours before surgery, infant formula 6 hours prior to surgery. - Children will be allowed to drink immediately following surgery.? If applicable, please bring a bottle or sippy cup to assist with drinking. Juice, water, soda, and popsicles are readily available.? For infants on formula, please bring formula the day of surgery.? Pacifiers are allowed. Take only the following medications with a SIP of water on the morning of surgery: PAIN MEDICATION NEEDED DO NOT STOP ANY OF YOUR OTHER PRESCRIPTION MEDICATIONS PRIOR TO SURGERY EXCEPT THE FOLLOWING Hold all vitamins and supplements for 3 days per anesthesiologist. Medications to discontinue per physician N/A Date to take last dose N/A Please no make-up, nail yakut, hairspray, perfume, deodorant, or body powder the day of surgery.? No jewelry (including any body piercings) or valuables the day of surgery, leave them at home.? Please take a shower or bath the night before, or the morning of, surgery with an antibacterial soap.? Wear comfortable, loose fitting clothing.? Children are encouraged to wear pajamas. - Jewelry must be removed prior to entering the operating room.? Rings and piercings that are not removed may be cut off. - The hospital will not accept responsibility for valuables.? - Please leave all valuables, including medications, at home the day of surgery. If you are going home after surgery, a licensed armor reconnaissance vehicle driver must drive you home.? - NO public transportation without another adult if you receive anesthesia. - We recommend that an adult stay with you for 24 hours following discharge. - We also recommend that you do not drive, make important decision, drink alcoholic beverages, or take any drugs that were not prescribed by your health care provider for at least 24 hours after your discharge time. For Pediatric surgeries, we recommend two adults accompany the child home. Follow any additional instructions given to you from your surgeon. Telephone instructions given to Patient- Francine Son and asked if any additional questions and then verbalized understanding. Patient advised to call surgeon office or pre surgery nurse liaison [phone] if any additional questions.
[2024-07-22 18:01] VITALS: BMI 34.4
[2024-07-30] VITALS (7 sets, daily range): BP systolic 103–138; BP diastolic 58–101; PULSE 57–71; RESP 16–20; TEMP 36.1–37.1; O2SAT 97–100
[2024-07-30] MEDS: ACETAMINOPHEN 500 MG TABLET 1000 MG PO (08:35)
--- NOTE | 2024-07-30 08:51 | P.PNAN_ITS ---
Anes - Initial Pre Proc Eval Procedure: Operation Date: 07/30/24 09:30 Proposed Procedures p Diagnostic Laparoscopy - Michael Horton MD s Hysteroscopy, Dilation and Curettage - Michael Horton MD Date/Time: 07/30/24 08:51 Surgeon: Michael Horton MD Pre Op Diagnosis: pelvic pain, irregular bleeding Patient Data Age: 24 Gender: F Height: 1.78 m Weight: 111.63 kg Last Vital Signs Temp 37.1 C 07/30/24 08:17 Pulse 71 07/30/24 08:17 Resp 18 07/30/24 08:17 BP 125/72 07/30/24 08:17 Pulse Ox 100 07/30/24 08:17 O2 Del Method Room Air 07/30/24 08:17 Allergies Allergy/AdvReac Type Severity Reaction Status Date / Time amoxicillin Allergy Rash Verified 07/30/24 08:21 Home Medications ?Medication ?Instructions ?Recorded ?Confirmed ?Type acetaminophen 500 mg tablet 500 mg PO Q6H PRN Pain 03/23/20 07/22/24 History (Tylenol Extra Strength) ibuprofen 800 mg tablet 800 mg PO TID PRN pain #10 tabs 06/27/21 07/22/24 Rx hydroxyzine HCl 25 mg tablet 25 mg PO HS PRN anxiety 07/22/24 07/22/24 History tramadol 50 mg tablet 50 mg PO DAILY PRN pain 07/22/24 07/22/24 History Patient hx anesthesia problems: none Family hx anesthesia problems: none Results Review: All pre-operative results and documents have been reviewed as part of the pre- operative evaluation. [facility] Past Medical History Medical History Anxiety and depression History of irregular menstrual bleeding Anemia Surgical History Surgical History H/O wrist surgery 2011 [place] teeth removed 2011 Family History Family History Father Hypertension Social History Social History Smoking status: Never smoker Alcohol intake: current Substance use: never Spiritual care concerns: No Anes - Eval Final PreProcedure Day of Procedure 07/30/24 08:51 Patient weight: obese Heart: regular rate and rhythm Lungs: clear to auscultation Airway: Mallampati scale class II Neurological: alert and oriented Last oral intake: >/= 8 hours ASA classification: II Emergent: no Anesthetic plan: proceed Anesthesia type and monitoring: general ETT and standard monitoring Results Review: All pre-operative results and documents have been reviewed as part of the pre- operative evaluation. Informed Consent: The patient's anesthetic plan and its attendant risks and benefits were discussed with the patient/family/POA. Questions were solicited and answers provided to the satisfaction of the patient/family/POA.
--- NOTE | 2024-07-30 09:02 | PM.IMHP ---
H&P: HPI History of Present Illness Date/Time: 07/30/24 09:02 Chief Complaint: Pain and bleeding Narrative: 24 y/o nulligravida with longstanding pelvic pain, as well as heavy, prolonged, painful menses. There is a family history of endometriosis. She is here for surgical evaluation and treatment of her problem. [facility] Past Medical History Medical History Anxiety and depression History of irregular menstrual bleeding Anemia Surgical History Surgical History H/O wrist surgery 2010 [place] teeth removed 2011 Family History Family History Father Hypertension Social History Social History Smoking status: Never smoker Alcohol intake: current Substance use: never Spiritual care concerns: No Meds Home Medications and Allergies Home Medications ?Medication ?Instructions ?Recorded ?Confirmed ?Type acetaminophen 500 mg tablet 500 mg PO Q6H PRN Pain 03/23/20 07/22/24 History (Tylenol Extra Strength) ibuprofen 800 mg tablet 800 mg PO TID PRN pain #10 tabs 06/27/21 07/22/24 Rx hydroxyzine HCl 25 mg tablet 25 mg PO HS PRN anxiety 07/22/24 07/22/24 History tramadol 50 mg tablet 50 mg PO DAILY PRN pain 07/22/24 07/22/24 History Allergies Allergy/AdvReac Type Severity Reaction Status Date / Time amoxicillin Allergy Rash Verified 07/30/24 08:21 Vital Signs Vital Signs - 24 hr 07/30/24 08:17 Temperature 37.1 C Pulse Rate 71 Respiratory Rate 18 Blood Pressure 125/72 Pulse Oximetry 100 Oxygen Delivery Room Air Assessment and Plan Assessment and plan (1) Menorrhagia with irregular cycle: Code(s): N92.1 - Excessive and frequent menstruation with irregular cycle Status: Acute Assessment and Plan: A: Menometrorrhagia with dysmenorrhea, longstanding pelvic pain. P: We have reviewed medical as well as surgical approaches, and she desires the latter. Specifically, I have offered her a diagnostic laparoscopy, hysteroscopy, and dilation with sharp curettage. She understands risks of surgery to include risks of anesthesia, risks of pain, infection, bleeding, blood products, thromboembolic phenomena and damage to adjacent structures such as bowel, bladder, ureters, blood vessels and nerves. She understands all these risks and elects to proceed with surgery. (2) Pelvic pain: Code(s): R10.2 - Pelvic and perineal pain Status: Acute (3) Dysmenorrhea: Code(s): N94.6 - Dysmenorrhea, unspecified Status: Acute
--- NOTE | 2024-07-30 09:05 | WPDHPUPDATE1 ---
History and Physical Update Update Date/Time: 07/30/24 09:05 History and Physical has been reviewed, including an updated exam of the patient. There are NO changes in the patient's condition. Risks, benefits, and alternatives have been discussed and questions answered. Patient agrees to proceed with procedure.
[2024-07-30] MEDS: LACTATED RINGERS 1,000 ML 30 ML IV CONT ×2 (09:10→11:05)
[2024-07-30] MEDS: KETOROLAC 15 MG/ML VIAL (*BKC) IV PUSH (09:19)
[2024-07-30 09:23] LABS: BEDSIDEPREGUCG Negative (Negative)
[2024-07-30] MEDS: LIDOCAINE 1% LOCAL INJ 10 ML VIAL INFILTRATE (10:48)
--- NOTE | 2024-07-30 11:06 | S_PTH ---
PATIENT: Francine Son LOC: [facility] U#:[id number] AGE/SX: 24/F ROOM: RE07/30/[address]: Michael Horton MD : 2000 BED: DIS: 07/30/2024 SPEC #: [id number] RECD: 07/30/24 12:59 STATUS: MARY ELLEN REQ #: [id number] JEREMIE: 07/30/24 11:[address]: Michael Horton DEPT: [facility] Surgical RECD BY: Jennie Schwarz ENTERED: 07/30/24 12:59 SP TYPE: Surgical OTHR DR: Lalit Kong MD Tissues: A - Endometrial Curettings B - Biopsy Procedures: Hematoxylin and Eosin Stain Gross and Microscopic Level 4
--- NOTE | 2024-07-30 11:10 | W.PM.PROC2 ---
Procedure Note - Detailed Date of Procedure 07/30/24 Pre-op Diagnosis Menometrorrhagia Dysmenorrhea Pelvic pain Post-op Diagnosis Same Procedure Performed Diagnostic laparoscopy Biopsy of peritoneum of anterior cul de sac. Cautery of endometriosis implants Hysteroscopy Dilation and sharp curettage Surgeon Michael Horton MD Anesthesia General and Local (1% lidocaine) Findings On laparoscopy, the uterus demonstrated a posterior fibroid. The ovaries were a little enlarged, but otherwise unremarkable. Bilateral Fallopian tubes unremarkable. Apparent endometriosis implants in the anterior and posterior cul de sac. Filmy adhesions between the bowel and posterior uterus. On hysteroscopy, the endometrial cavity was remarkable only for thickened endometrial tissue. Both tubal ostia were noted. Description of Procedure The patient was taken to the operating room where general endotracheal anesthesia was administered. She was prepared and draped in the usual sterile fashion in the dorsal lithotomy position. The bladder was drained with a red rubber catheter. A sterile speculum was inserted into the vagina and the anterior lip of the cervix was grasped with a single-toothed tenaculum. The acorn uterine manipulator was placed. The speculum was withdrawn. Gloves were changed and attention was turned to the abdomen. An infraumbilical skin incision was made with a scalpel. The abdomen was tented and a 5 millimeter bladeless trocar trocar was advanced under direct laparoscopic visualization. Pneumoperitoneum was administered using carbon dioxide gas. A survey of the pelvis and abdomen yielded the findings noted above. Additional 5 mm ports were placed in the midline above the symphysis pubis, and in the left lower quadrant, again using bladeless trocars under direct visualization. A punch biopsy was taken of an endometriosis implant to the left of midline in the anterior cul de sac. Filmy adhesions between the bowel and the posterior serosal surface of the uterus were gently lysed bluntly. Needlepoint electrocautery was used to cauterize endometriosis implants in the anterior and posterior cul de sac. Hemostasis was excellent. The trocars were withdrawn and the gas was allowed to escape. The skin incisions were reapproximated using 4-0 Vicryl in interrupted subcuticular fashion. Dermaflex was applied externally. Attention was redirected to the vagina where the acorn manipulator was withdrawn and the speculum reintroduced. Ten mL of 1% lidocaine was administered in a paracervical block. The cervix was then gently dilated using Hegar dilators until a 7 mm dilator could be passed. Hysteroscopy was performed using sterile saline as a distention medium. Findings are as noted above. Sharp curettage was then performed, and endometrial curettings were collected on a Telfa pad and passed off to be sent to pathology. Hemostasis was excellent. Sponge, lap, needle and instrument counts were correct. The patient was awakened and taken to the recovery room in stable condition. I was present and scrubbed through the entire procedure. Estimated Blood Loss 10 Drains No Pathology Yes (Biopsy of peritoneum of anterior cul de sac. Endometrial curettings.) Complications None Condition Stable Disposition PACU
[2024-07-30] MEDS: fentaNYL CITRATE INJ (*CRX) 100 MCG/2 ML VIAL 25 MCG IV PUSH ×2 (11:30→11:35)
[2024-07-30] MEDS: oxyCODONE HCL (*CRX) 5 MG TAB IR PO (12:05)
[2024-07-30] MEDS: ONDANSETRON INJ 4 MG/2 ML VIAL IV PUSH (12:14)
--- NOTE | 2024-07-30 12:15 | SUR.PHASEII ---
Patient requested zofran for car ride home. Has history of motion sickness.
== END 2024-07-30 12:45 | disposition home or self-care (01) ==
PROVIDERS: PCP Internal Medicine; Visit Provider Obstetrics & Gynecology
PROC: (CPT 49320; principal; 2024-07-30 09:30)
PROC: 0U5B8ZZ Destruction of Endometrium, Via Natural or Artificial Opening Endoscopic (ICD-10-PCS; CPT 58563; 2024-07-30 09:30)
DX: D25.9 Leiomyoma of uterus, unspecified (principal); N80.319 Endometriosis of the anterior cul-de-sac, unspecified depth; N80.329 Endometriosis of the posterior cul-de-sac, unspecified depth; N73.6 Female pelvic peritoneal adhesions (postinfective); N92.1 Excessive and frequent menstruation with irregular cycle; E66.9 Obesity, unspecified; Z68.35 Body mass index [BMI] 35.0-35.9, adult
CPT/HCPCS: 58558; 58662; 49321; 36415; 86850; 86900; 86901; 88305; A9270; J1100; J1885; J2003; J2250; J2405; J2704; J3010; J7120